=== PATIENT | male | born 1950 | race Caucasian/White ===

== ENCOUNTER 2019-08-26 15:55 | Emergency (ER) | payer MEDICARE ==
[~2019-08-26] VITALS: Ht 175.3 cm; Wt 103.1 kg
[~2019-08-26 15:55] MED LIST: ALBU8.5H5 IH; ASPI-515 PO; FLUT1DIS5 IH; GLUC15006 PO; IBUP-1623 PO; LISI2.5T PO; LORA-247 PO; METF500T17 PO; METO10TA2 PO; METO25TA35 PO; MONT10TA6 PO; MULT-464 PO; OMEP-110 PO; OXYC1TAB7 PO; SIMV5TAB14 PO; TAMS-11 PO; TIOT18CA IH
[2019-08-26] MEDS ORDERED: SODIUM CHLORIDE FLUSH 10ML SYR IVF ONE (17:00)
--- NOTE | 2019-08-26 17:00 | NUR ---
PT AO4 AT THIS TIME REPORTS HE HAS NO COMPLAINTS "I FEEL FINE"
[2019-08-26 17:40] LABS: BASOPHILS # (AUTO) 0.01 x10^3/uL (0-0.1); BASOPHILS % (AUTO) 0 % (0-1); EOSINOPHILS # (AUTO) 0.13 x10^3/uL (0-0.4); EOSINOPHILS % (AUTO) 2 % (1-7); LYMPHOCYTES # (AUTO) 1.13 x10^3/uL (1-3.4); LYMPHOCYTES % (AUTO) 13 % (22-44); MD NO; MEAN CORPUSCULAR HEMOGLOBIN 29.6 pg (27.5-34.5); MEAN CORPUSCULAR VOLUME 89.7 fL (81-97); MEAN PLATELET VOLUME 8.8 fL (7.4-10.4); MONOCYTES # (AUTO) 0.64 x10^3/uL (0.2-0.8); MONOCYTES % (AUTO) 7 % (2-9); NEUTROPHILS # (AUTO) 6.79 x10^3/uL (1.8-6.8); NEUTROPHILS % (AUTO) 78 % (42-75); PLATELET COUNT 189 x10^3/uL (130-400); RED BLOOD COUNT 4.81 x10^6/uL (4.38-5.82); RED CELL DISTRIBUTION WIDTH 14.1 % (9.4-14.8)
[2019-08-26 17:50] LABS: ALANINE AMINOTRANSFERASE 43 U/L (12-78); ALBUMIN 3.8 g/dL (3.4-5.0); ANION GAP 8 mmol/L (5-15); CHLORIDE 109 mmol/L (98-107); CREATININE 1.15 mg/dL (0.7-1.3)
[2019-08-26 17:54] LABS: ALKALINE PHOSPHATASE 52 U/L (45-117); BILIRUBIN,TOTAL 0.5 mg/dL (0.2-1.0); TOTAL PROTEIN 6.9 g/dL (6.4-8.2); TROPONIN I < 0.015 ng/mL (0.000-0.045)
[2019-08-26 18:47] LABS: MICROSCOPIC NOT IND
[2019-08-26 18:49] LABS: CULTURE INDICATED? NO
--- NOTE | 2019-08-26 19:03 | NUR ---
TASK RN: FIRST CONTACT WITH PT: Patient given discharge instructions and they have confirmed that they understand the instructions. Patient ambulatory with steady gait. Pt left with d/c paperwork and all personal belongings. NADN. No needs expressed.
[2019-08-26 19:04] VITALS: BP 130/70
== END 2019-08-26 19:07 | disposition home or self-care (01) ==
LOC: ED 18:51
DX: R55 Syncope and collapse (principal); E11.9 Type 2 diabetes mellitus without complications; I10 Essential (primary) hypertension; E78.5 Hyperlipidemia, unspecified; Z72.89 Other problems related to lifestyle
CPT/HCPCS: 36415; 70450; 71045; 80053; 81003; 84484; 85025; 93005; 99284

== ENCOUNTER → 2020-02-01 | Outpatient (CLI) | payer MEDICARE, OTHER | END | disposition home or self-care (01) | LOC: CFH 08:48 | PROVIDERS: ATTEND Genetic Counselor, MS | DX: M79.5 Residual foreign body in soft tissue (principal); R91.1 Solitary pulmonary nodule; N20.0 Calculus of kidney; K76.0 Fatty (change of) liver, not elsewhere classified; K80.20 Calculus of gallbladder without cholecystitis without obstruction; I70.0 Atherosclerosis of aorta | CPT/HCPCS: 71250 ==